=== PATIENT | male | born 1975 | race Caucasian/White ===

== ENCOUNTER 2021-04-19 10:23 | Emergency (ER) | payer OTHER ==
[2021-04-19 11:42] LABS: HEMOGLOBIN 17.2 gm/dl (14.0-17.5); RED BLOOD COUNT 5.17 M/UL (4.20-5.50); WHITE BLOOD COUNT 4.6 K/UL (4.5-11.0)
[2021-04-19 12:08] LABS: BUN/CREATININE RATIO 14 (0-10)
[2021-04-19] MEDS ORDERED: OMNICEF 300 MG300 MG PO (14:10)
[2021-04-19] MEDS ORDERED: FLOMAX 0.4 MG0.4 MG PO (14:10)
[2021-04-19] MEDS ORDERED: ZOFRAN4 MG PO (14:13)
[2021-04-19] MEDS ORDERED: PERCOCET 5/325 T1 EA PO (14:45)
== END 2021-04-19 14:56 | disposition home or self-care (01) ==
LOC: ER1 10:23
PROVIDERS: Student in an Organized Health Care Education/Training Program
DX: N13.2 Hydronephrosis with renal and ureteral calculous obstruction (principal); N40.0 Benign prostatic hyperplasia without lower urinary tract symptoms; I10 Essential (primary) hypertension; Z90.49 Acquired absence of other specified parts of digestive tract; Z88.8 Allergy status to other drugs, medicaments and biological substances; Z79.899 Other long term (current) drug therapy
CPT/HCPCS: 80053; 81001; 85025; 96374; 96375; 99284; J1170; J1885; J2405; J7030

== ENCOUNTER → 2021-04-26 | Outpatient (CLI) | payer OTHER ==
[~2021-04-26] MED LIST: FLOMAX 0.4 MG0.4 MG PO; OMNICEF 300 MG300 MG PO; PERCOCET 5/325 T1 EA PO; ZOFRAN4 MG PO
== END ==
LOC: EXRD 11:34
DX: N20.1 Calculus of ureter (principal); N20.0 Calculus of kidney
CPT/HCPCS: 74018